=== PATIENT | female | born 1950 | race Hispanic/Latino ===

== ENCOUNTER 2021-08-21 06:54 | Observation (INO) | payer MEDICARE ==
[2021-08-16 12:33] LABS: BASOPHILS # (AUTO) 0.1 (0.0-0.1); BASOPHILS % 0.4 % (0.0-1.0); EOSINOPHILS # (AUTO) 0.1 (0.0-0.4); EOSINOPHILS % 0.8 % (0.0-6.0); HEMATOCRIT 43.7 % (34.2-44.1); HEMOGLOBIN 13.4 g/dL (12.0-16.0); LYMPHOCYTES # (AUTO) 1.8 (1.0-3.2); LYMPHOCYTES % 13.4 % (18.0-39.1); MEAN CORPUSCULAR HEMOGLOBIN 27.2 pg (28-32); MEAN CORPUSCULAR HGB CONC 30.7 g/dL (31-35); MEAN CORPUSCULAR VOLUME 88.8 fL (81-99); MONOCYTES # (AUTO) 0.8 (0.2-0.8); MONOCYTES % 5.8 % (4.4-11.3); NEUTROPHILS # (AUTO) 10.7 (2.1-6.9); NEUTROPHILS % 78.8 % (38.7-80.0); PLATELET COUNT 296 x10e3/uL (140-360); RED BLOOD COUNT 4.92 x10e6/uL (3.6-5.1); RED CELL DISTRIBUTION WIDTH 15.2 % (11.7-14.4)
[~2021-08-21] VITALS: Ht 172.7 cm; Wt 97.5 kg
[~2021-08-21 06:54] MED LIST: CELEBREX200 MG PO; CELECOXIB 200 MG CAP ONE; DEXAMETHASONE SOD PHOS 10 MG/1 ML VIAL ONE; FOLIC ACID0.8 MG PO; GABAPENTIN 300 MG CAP ONE; LOSARTAN POTASS25 MG PO; METHOTREXATE2.5 MG PO; SODIUM CHLORIDE 0.9% 500ML 500 ML ONE; TRANEXAMIC ACID 20 ML ONE; Vancomycin IV 1,000 MG ONE
[2021-08-21] MEDS ORDERED: ROPIVACAINE 246.25 MG, EPINEPHRINE HCL 1:1000 1ML 0.5 MG, CLONIDINE HCL 0.08 MG, KETORO... INJ ONE ×5 (08:00)
[2021-08-21] MEDS ORDERED: ROPIVACAINE 0.5% 5 MG/ML 30 ML SDV ONE (08:29)
[2021-08-21] MEDS ORDERED: ZOLPIDEM TARTRATE 5 MG TAB PO PRN ×2 (10:15→11:30)
[2021-08-21] MEDS ORDERED: DOCUSATE SODIUM 100 MG CAP PO PRN ×2 (10:15→11:30)
[2021-08-21] MEDS ORDERED: HYDROCODONE/APAP 5MG-325MG TAB PO PRN ×2 (10:15→11:30)
[2021-08-21] MEDS ORDERED: ACETAMINOPHEN 650 MG SUPP PR PRN ×2 (10:15→11:30)
[2021-08-21] MEDS ORDERED: KETOROLAC TROMETHAMINE 30 MG/ML VIAL IV PRN ×2 (10:15→11:30)
[2021-08-21] MEDS ORDERED: ONDANSETRON HCL INJ 2MG/ML 2ML 2 MG/ML VIAL IV PRN ×2 (10:15→11:30)
[2021-08-21] MEDS ORDERED: HYDROCODONE/APAP 7.5MG-325MG 1 EA TAB PO PRN ×2 (10:15→11:30)
[2021-08-21] MEDS ORDERED: DIPHENHYDRAMINE HCL INJ 50 MG/ML VIAL IV PRN ×2 (10:15→11:30)
[2021-08-21] MEDS ORDERED: Morphine 4mg INJECTION 4 MG/ML INJ ONE (11:54)
[2021-08-21 12:40] VITALS: BP 152/67
[2021-08-21 12:41] VITALS: BP 152/67
[2021-08-21 12:42] VITALS: BP 152/67
[2021-08-21] MEDS ORDERED: Losartan PO (13:13)
[2021-08-21] MEDS ORDERED: METHOTREXATE2.5 MG PO (13:15)
[2021-08-21] MEDS ORDERED: FENTANYL CITRATE/PF 100MCG/2 ML INJ ONE (13:19)
[2021-08-21] MEDS ORDERED: MIDAZOLAM HCL 2 MG/2 ML VIAL ONE (13:19)
[2021-08-21] MEDS: SODIUM CHLORIDE 0.9% 1000ML 1,000 ML IV SCH (13:30)
[2021-08-21] MEDS ORDERED: SEVOFLURANE INHAL SOLN 250 ML PEN BTL ONE (14:08)
[2021-08-21] MEDS ORDERED: ACETAMINOPHEN 1000 MG/100 ML IV ONE (14:08)
[2021-08-21] MEDS ORDERED: POVIDONE IODINE 0.05% 0.05 % ML PO ONE (14:08)
[2021-08-21] MEDS ORDERED: LIDOCAINE HCL 2% LOCAL INJ 5 ML SDV VIAL INJ ONE (14:08)
[2021-08-21] MEDS ORDERED: PROPOFOL IV EMULSION 10 MG/ML 20 ML VIAL ONE (14:08)
[2021-08-21] MEDS ORDERED: ONDANSETRON HCL INJ 2MG/ML 2ML 2 MG/ML VIAL ONE (14:08)
[2021-08-21 16:13] VITALS: BP 108/52
[2021-08-21] MEDS: ASPIRIN 325 MG TAB PO SCH (16:55)
[2021-08-21] MEDS: CELECOXIB 200 MG CAP PO SCH (16:57)
[2021-08-21] MEDS ORDERED: CELECOXIB 100 MG CAP PO SCH (17:00)
[2021-08-21] MEDS ORDERED: ASPIRIN 325 MG TAB PO SCH (17:00)
[2021-08-21 20:00] VITALS: BP 110/48
[2021-08-21 21:00] VITALS: BP 110/48
[2021-08-22 00:21] VITALS: BP 107/49
[2021-08-22] MEDS: SODIUM CHLORIDE 0.9% 1000ML 1,000 ML IV SCH ×2 (00:28→09:30)
[2021-08-22 04:00] VITALS: BP 103/53
[2021-08-22 06:08] LABS: HEMATOCRIT 35.2 % (34.2-44.1); HEMOGLOBIN 10.9 g/dL (12.0-16.0)
[2021-08-22 07:55] VITALS: BP 103/53
[2021-08-22 08:24] VITALS: BP 106/35
[2021-08-22 08:28] VITALS: BP 113/45
[2021-08-22] MEDS: ASPIRIN 325 MG TAB PO SCH (08:58)
[2021-08-22] MEDS: CELECOXIB 200 MG CAP PO SCH (08:58)
[2021-08-22] MEDS ORDERED: ACETAMINOPHEN 1000 MG/100 ML IV PRN ×2 (10:15→11:30)
[2021-08-22 12:12] VITALS: BP 103/48
[2021-08-22] MEDS ORDERED: ONDANSETRON HCL 4 MG ORAL DISINTEGRATING TAB PO PRN (12:15)
== END 2021-08-22 12:27 | disposition home or self-care (01) ==
LOC: OR 06:54 → PACU V 11:28 → MED/SURG2 12:25
PROVIDERS: ADMIT Specialist; ATTEND Specialist
DX: M17.11 Unilateral primary osteoarthritis, right knee (principal); I10 Essential (primary) hypertension; M06.9 Rheumatoid arthritis, unspecified; Z01.812 Encounter for preprocedural laboratory examination; Z01.818 Encounter for other preprocedural examination; Z20.822 Contact with and (suspected) exposure to COVID-19
CPT/HCPCS: 27447; 36415 ×2; 71046; 73560; 85014; 85018; 85025; 86850; 86900; 86920; 94799; 97110 ×2; 97116; 97139; 97161; 97530; C1713 ×2; C1776 ×3; G0378 ×2; J0131; J0171; J0690 ×2; J1100; J1885; J2001; J2250; J2270; J2405; J2704; J2795; J3010; J3370; J7030; J7040; U0002